=== PATIENT | female | born 1960 | race Hispanic/Latino ===

== ENCOUNTER 2024-11-04 09:58 | Emergency (ER) | payer BC ==
[2024-11-04] MEDS ORDERED: Ondansetron PF 4 MG/2 ML Vial ONE (10:35)
[2024-11-04] MEDS ORDERED: Milk Of Magnesia 30 ML UDCUP ONE (10:36)
[2024-11-04] MEDS ORDERED: Dicyclomine 20 MG/2 ML VIAL ONE (10:36)
[2024-11-04] MEDS ORDERED: Pantoprazole 40 MG VIAL ONE (10:36)
[2024-11-04] MEDS ORDERED: Lidocaine Viscous Sol 2% 15 ml UD Cup ONE (10:36)
[2024-11-04 10:44] LABS: #Basophils 0.01 10x3/uL (0.0-0.2); #Eosinophils 0.08 10x3/uL (0.0-0.5); #Neutrophils 1.75 10x3/uL (1.5-8.4); %Basophils 0.3 % (0.0-2.0); %Eosinophils 2.7 % (0.0-6.0); %Monocytes 6.7 % (0.0-10.0); Hematocrit 38.7 % (34.9-44.5); Hemoglobin 12.4 g/dL (12.0-15.5); Mean Corpuscular Hemoglobin 25.8 pg (27.0-33.0); Mean Corpuscular Volume 80.6 fL (81.6-98.3); Mean Platelet Volume 11.2 fL (7.4-10.4); Platelet Count 166 10x3/uL (150-450); RBC Distribution Width 13.6 % (11.5-14.5)
[2024-11-04 11:03] LABS: Bilirubin Neg (Negative); Blood, Urine Negative (Negative); Clarity Clear (Clear); Glucose, Urine (Dipstick) Normal (Negative); Ketone, Urine Negative (Negative); Leukocyte Negative (Negative); Nitrite Negative (Negative); Protein, Urine (Dipstick) Negative (Neg-Trace); Urobilinogen Normal mg/dL (Less than 2)
[2024-11-04 11:05] LABS: ALT (SGPT) 58 U/L (8-55); AST (SGOT) 48 U/L (5-34); Alkaline Phosphatase 82 U/L (40-110); Anion Gap 14 mmol/L (10-20); BUN (Urea Nitrogen) 22 mg/dL (9.8-20.1); Bilirubin, Total 0.4 mg/dL (0.2-1.2); Calc. Creatinine Clearance 0 mL/min (70-130); Calcium 9.6 mg/dL (7.8-10.44); Carbon Dioxide 25 mmol/L (23-31); Chloride 105 mmol/L (98-107); Estimated GFR 61; Globulin 2.9 g/dL (2.4-3.5); Glucose 102 mg/dL (80-115); Lipase 45 U/L (8-78); Potassium 4.5 mmol/L (3.5-5.1); Protein, Total 6.9 g/dL (5.8-8.1); Sodium 139 mmol/L (136-145)
[2024-11-04 11:09] LABS: Bacteria/HPF 1+ HPF (None Seen); CAUTI Indications for Culture Pelvic or flank pain; RBC/HPF None Seen HPF (0-3); WBC/HPF 0-3 HPF (0-3)
[2024-11-04 11:10] LABS: Urine Culture Reflex No No
[2024-11-04] MEDS ORDERED: Iopamidol 300 61% 100 ML VIAL FS ONE (11:12)
== END 2024-11-04 12:21 | disposition home or self-care (01) ==
LOC: CSHERS 09:58
DX: R10.13 Epigastric pain (principal)
CPT/HCPCS: 71045; 74177; 80053; 81001; 83690; 84443; 85025; 93005; 96372; 96374; 96375; J2405; J2470; Q9967